=== PATIENT | male | born 1970 | race Caucasian/White ===

== ENCOUNTER 2019-02-05 09:33 | Emergency (ER) | payer BC, OTHER ==
[~2019-02-05] VITALS: Ht 177.8 cm; Wt 79.4 kg
[2019-02-05] MEDS ORDERED: LACTATED RINGERS 1,000 ML IV ONE (09:49)
[2019-02-05] MEDS ORDERED: LISI-552 (09:52)
[2019-02-05] MEDS ORDERED: LOSA25TA41 PO (09:52)
--- NOTE | 2019-02-05 10:02 | ED GI ---
General Chief Complaint: Abdominal/GI Problems Stated Complaint: DIARRHEA;BLOOD IN STOOL Nursing Triage Note: AMB TO ROOM REPORTS THAT LAST 2 DAYS HAS HAD A LIQUID STOOL WITH BRIGHT REG BLOOD. Sepsis Screen: No Definite Risk Source of Information: Patient Exam Limitations: No Limitations History of Present Illness Date Seen by Provider: Feb 05, 2019 Time Seen by Provider: 09:41 Initial Comments Here with report of blood in his stool and has occurred multiple times since yesterday evening. States that his stool is liquid, bright red and bloody and he has had at least 3-4 stools since onset. States that it's a little less now than previous. Has a hunger feeling in his stomach and states that is not uncommon. Denies history of similar. Does have history of hemorrhoids but states he has never had bleeding like this before. Hemorrhoids are apparently external. Timing/Duration: 12-24 Hours Severity/Quality: Moderate Location: Generalized Abdomen Radiation: No Radiation Activities at Onset: None Modifying Factors: Worsens With Eating Associated Symptoms: No Back Pain, No Chest Pain, No Fever/Chills; Fatigue; No Nausea/Vomiting, No Shortness of Air; Weakness Allergies and Home Medications Allergies Coded Allergies: No Known Drug Allergies (Unverified , 02/05/19) Patient Home Medication List Home Medication List Reviewed: Yes Review of Systems Review of Systems Constitutional: see HPI; No chills, No fever EENTM: No Symptoms Reported Respiratory: No Symptoms Reported Cardiovascular: Denies Chest Pain, Denies Edema; Lightheadedness Gastrointestinal: Abdominal Pain, Diarrhea, Nausea, Rectal Bleeding; Denies Vomiting Genitourinary: No Symptoms Reported Musculoskeletal: no symptoms reported Skin: no symptoms reported All Other Systems Reviewed Negative Unless Noted: Yes Past Dcewnca-Mgccjz-Jpkrti Hx Past Med/Social Hx: Reviewed Nursing Past Med/Soc Hx Patient Social History Alcohol Use: Denies Use Recreational Drug Use: No Smoking Status: Never a Smoker Recent Foreign Travel: No Contact w/Someone Who Travel: No Recent Infectious Disease Expo: No Seasonal Allergies Seasonal Allergies: Yes Past Medical History Surgeries: No Respiratory: No Cardiac: Yes Hypertension Neurological: No Genitourinary: No Gastrointestinal: Yes Hemorrhoids Musculoskeletal: No Endocrine: No HEENT: No Cancer: No Psychosocial: No Integumentary: No Blood Disorders: No Family Medical History Reviewed and Corrections made No Pertinent Family Hx Physical Exam Vital Signs Vital Signs - First Documented 02/05/19 09:38 Temp 97.6 Pulse 109 Resp 18 B/P (MAP) 130/76 (94) Pulse Ox 99 Capillary Refill : Less Than 3 Seconds Height/Weight/BMI Height: 5'10.00" Weight: 175lbs. oz. 79.124718cm; BMI Method:Stated General Appearance: WD/WN, no apparent distress HEENT: PERRL/EOMI, pharynx normal Neck: full range of motion, supple Respiratory: lungs clear, normal breath sounds Cardiovascular: regular rate, rhythm, no murmur Peripheral Pulses: 2+ Dorsalis Pedis (R), 2+ Left Dors-Pedis (L), 2+ Radial Pulses (R), 2+ Radial Pulses (L) Gastrointestinal: non tender, soft Rectal: normal rectal tone, heme positive stool, hemorrhoids (small external the anterior 6:00 position that is not bleeding.); No mass, No tenderness Extremities: non-tender, normal inspection Back: normal inspection, no CVA tenderness, no vertebral tenderness Neurologic/Psychiatric: alert, oriented x 3 Skin: normal color, warm/dry Progress/Results/Core Measures Results/Orders Lab Results Laboratory Tests Test 02/05/19 09:54 02/05/19 12:26 Range/Units White Blood Count 9.5 4.3-11.0 10^3/uL Red Blood Count 5.01 4.35-5.85 10^6/uL Hemoglobin 15.4 13.3-17.7 G/DL Hematocrit 44 40-54 % Mean Corpuscular Volume 88 80-99 FL Mean Corpuscular Hemoglobin 31 25-34 PG Mean Corpuscular Hemoglobin Concent 35 32-36 G/DL Red Cell Distribution Width 13.5 10.0-14.5 % Platelet Count 306 130-400 10^3/uL Mean Platelet Volume 10.2 7.4-10.4 FL Neutrophils (%) (Auto) 76 H 42-75 % Lymphocytes (%) (Auto) 17 12-44 % Monocytes (%) (Auto) 6 0-12 % Eosinophils (%) (Auto) 0 0-10 % Basophils (%) (Auto) 0 0-10 % Neutrophils # (Auto) 7.3 1.8-7.8 X 10^3 Lymphocytes # (Auto) 1.7 1.0-4.0 X 10^3 Monocytes # (Auto) 0.6 0.0-1.0 X 10^3 Eosinophils # (Auto) 0.0 0.0-0.3 10^3/uL Basophils # (Auto) 0.0 0.0-0.1 10^3/uL Sodium Level 137 135-145 MMOL/L Potassium Level 4.9 3.6-5.0 MMOL/L Chloride Level 102 98-107 MMOL/L Carbon Dioxide Level 27 21-32 MMOL/L Anion Gap 8 5-14 MMOL/L Blood Urea Nitrogen 33 H 7-18 MG/DL Creatinine 1.66 H 0.60-1.30 MG/DL Estimat Glomerular Filtration Rate 45 BUN/Creatinine Ratio 20 Glucose Level 129 H 70-105 MG/DL Calcium Level 9.2 8.5-10.1 MG/DL Corrected Calcium 9.3 8.5-10.1 MG/DL Total Bilirubin 1.7 H 0.1-1.0 MG/DL Aspartate Amino Transf (AST/SGOT) 19 5-34 U/L Alanine Aminotransferase (ALT/SGPT) 20 0-55 U/L Alkaline Phosphatase 40 40-136 U/L Total Protein 5.9 L 6.4-8.2 GM/DL Albumin 3.9 3.2-4.5 GM/DL Urine Color YELLOW Urine Clarity CLEAR Urine pH 7 5-9 Urine Specific [place] 1.010 L 1.016-1.022 Urine Protein 2+ H NEGATIVE Urine Glucose (UA) NEGATIVE NEGATIVE Urine Ketones 1+ H NEGATIVE Urine Nitrite NEGATIVE NEGATIVE Urine Bilirubin NEGATIVE NEGATIVE Urine Urobilinogen NORMAL NORMAL MG/DL Urine Leukocyte Esterase 1+ H NEGATIVE Urine RBC (Auto) NEGATIVE NEGATIVE Urine RBC NONE /HPF Urine WBC RARE /HPF Urine Squamous Epithelial Cells RARE /HPF Urine Crystals NONE /LPF Urine Bacteria TRACE /HPF Urine Casts PRESENT /LPF Urine Hyaline Casts 10-25 H /LPF Urine Mucus SMALL H /LPF Urine Culture Indicated NO My Orders Orders - GELY MURRAY MD Cbc With Automated Diff (02/05/19 09:49) Comprehensive Metabolic Panel (02/05/19 09:49) Type And Screen (02/05/19 09:49) Saline Lock/Iv-Start (02/05/19 09:49) Lactated Ringers (Lr 1000 Ml Iv Solution (02/05/19 09:49) Fecal Occult Bedside (02/05/19 09:49) Ct Abdomen/Pelvis W (02/05/19 10:22) Iohexol Injection (Omnipaque 350 Mg/Ml 1 (02/05/19 11:00) Received Contrast (Hold Metformin- Contr (02/05/19 11:00) Ua Culture If Indicated (02/05/19 11:57) Saline Lock/Iv-Start (02/05/19 12:00) Ns Iv 1000 Ml (Sodium Chloride 0.9%) (02/05/19 12:00) Medications Given in ED Current Medications Medications Dose Ordered Sig/Marcos Route Start Time Stop Time Status Last Admin Dose Admin Lactated Ringer's 1,000 ml @ 0 mls/hr Q0M ONCE IV 02/05/19 09:49 02/05/19 09:51 DC 02/05/19 10:01 1,000 MLS/HR Sodium Chloride 1,000 ml @ 0 mls/hr Q0M ONCE IV 02/05/19 12:00 02/05/19 12:01 DC 02/05/19 12:03 0 MLS/HR Vital Signs/I&O 02/05/19 09:38 Temp 97.6 Pulse 109 Resp 18 B/P (MAP) 130/76 (94) Pulse Ox 99 Blood Pressure Mean: 94 Progress Progress Note : Progress Note Seen and evaluated. IV, labs, LR 1 L bolus ordered. Rectal exam performed. Stool is heme positive. 1025: CT abdomen and pelvis ordered to evaluate for other etiologies including diverticulosis. Discussed with patient who agrees. Monitor patient. 1230: Will repeat normal saline 1 L bolus. No other significant findings and he has not had bloody stool here. I did page Dr. Neal and I am awaiting his return call. 1300: I discussed the case with Dr. Neal. He can see him tomorrow at 2 PM given his otherwise normal labs and CT scan and lack of repeat bloody stool currently. Patient is overall feeling much better. We will await for fluid completion. 1410: Fluids complete and patient feels better. Still without bloody stool although he states he may feel like he has to have a little bit of a bowel movement soon. He was instructed on the follow- up and agreed with what see Dr. Neal tomorrow at 2 PM. Discharged home with return precautions. Patient verbalize understanding instructions and agreement with plan. Diagnostic Imaging Diagonstic Imaging: CT Plain Films/CT/US/NM/MRI: abdomen, pelvis Comments NAME: [facility] REC#: [id number] PT STATUS: REG ER : 1970 PHYSICIAN: GELY MURRAY MD ADMIT DATE: 02/05/19/ER Draft Date of Exam:02/05/19 CT ABDOMEN/PELVIS W PROCEDURE: CT abdomen and pelvis with contrast. TECHNIQUE: Multiple contiguous axial images were obtained through the abdomen and pelvis after administration of intravenous contrast. Auto Exposure Controls were utilized during the CT exam to meet ALARA standards for radiation dose reduction. INDICATION: Bloody stools. FINDINGS: There is a probable cyst in the right lobe of the liver without other focal hepatic or splenic lesion. Pancreas, adrenal glands and kidneys are also unremarkable in appearance. There is evidence of gallbladder abnormality or biliary ductal dilatation. There is no free fluid within the abdomen or pelvis. The appendix has a normal appearance. There is no evidence of bowel obstruction. Partially opacified urinary bladder is unremarkable. There is prominent enhancement of the prostate gland however no significant prostatic enlargement is identified and is no focal fluid collection. IMPRESSION: No definite acute abnormality is identified. Prosthetic hyperemia may be related to prostatitis and clinical correlation is recommended. There is no evidence of colonic inflammation or obstruction. Dictated on workstation # [id number] Dict: 02/05/19 1146 Trans: 02/05/19 1153 ANDREA [id number] Interpreted by: BEBO DEGROOT MD Electronically signed by: Departure Impression Primary Impression: Lower GI bleed Additional Impression: Dehydration Disposition: 01 HOME, SELF-CARE Condition: Improved Departure-Patient Inst. Decision time for Depature: 14:15 Referrals: CONNIE LUCIANO MD (PCP) Primary Care Physician Patient Instructions: Acute Abdomen (Belly Pain), Adult (DC), Gastrointestinal Bleeding (DC) Add. Discharge Instructions: All discharge instructions reviewed with patient and/or family. Voiced understanding. Clear liquid diet for very light diet over the next 24 hours and then advance as tolerated. Follow-up with Dr. Neal tomorrow at 2 PM for appointment. Follow- up with your doctor this week for recheck and further evaluation. Return for worse pain, fever, vomiting, weakness, breathing problems, persistent bloody stool or other concerns as needed. Copy Copies To 1: MICHELLE NEAL MD Copies To 2: CONNIE LUCIANO MD, TIMOTHY D MD Feb 05, 2019 10:02
[2019-02-05 10:03] LABS: BASOPHILS % (AUTO) 0 % (0-10); EOSINOPHILS % (AUTO) 0 % (0-10); HEMATOCRIT 44 % (40-54); HEMOGLOBIN 15.4 G/DL (13.3-17.7); LYMPHOCYTES # (AUTO) 1.7 X 10^3 (1.0-4.0); LYMPHOCYTES % (AUTO) 17 % (12-44); MEAN CORPUSCULAR HEMOGLOBIN 31 PG (25-34); MEAN CORPUSCULAR HGB CONC 35 G/DL (32-36); MEAN CORPUSCULAR VOLUME 88 FL (80-99); MEAN PLATELET VOLUME 10.2 FL (7.4-10.4); MONOCYTES # (AUTO) 0.6 X 10^3 (0.0-1.0); MONOCYTES % (AUTO) 6 % (0-12); NEUTROPHILS # (AUTO) 7.3 X 10^3 (1.8-7.8); NEUTROPHILS % (AUTO) 76 % (42-75); PLATELET COUNT 306 10^3/uL (130-400); RED CELL DISTRIBUTION WIDTH 13.5 % (10.0-14.5); WHITE BLOOD COUNT 9.5 10^3/uL (4.3-11.0)
[2019-02-05 10:32] LABS: ALBUMIN 3.9 GM/DL (3.2-4.5); BILIRUBIN,TOTAL 1.7 MG/DL (0.1-1.0); CALCIUM 9.2 MG/DL (8.5-10.1); CREATININE SERUM 1.66 MG/DL (0.60-1.30); POTASSIUM 4.9 MMOL/L (3.6-5.0); TOTAL PROTEIN 5.9 GM/DL (6.4-8.2)
[2019-02-05] MEDS ORDERED: HOLD METFORMIN - RECEIVED CONTRAST 20 ML VIAL IV SCH (11:00)
[2019-02-05] MEDS ORDERED: IOHEXOL 350 MG/ML 100 ML (OMNIPAQUE 350) VIAL IV ONE (11:00)
--- NOTE | 2019-02-05 11:54 | Diagnostic Imaging Report ---
PROCEDURE: CT abdomen and pelvis with contrast. TECHNIQUE: Multiple contiguous axial images were obtained through the abdomen and pelvis after administration of intravenous contrast. Auto Exposure Controls were utilized during the CT exam to meet ALARA standards for radiation dose reduction. INDICATION: Bloody stools. FINDINGS: There is a probable cyst in the right lobe of the liver without other focal hepatic or splenic lesion. Pancreas, adrenal glands and kidneys are also unremarkable in appearance. There is evidence of gallbladder abnormality or biliary ductal dilatation. There is no free fluid within the abdomen or pelvis. The appendix has a normal appearance. There is no evidence of bowel obstruction. Partially opacified urinary bladder is unremarkable. There is prominent enhancement of the prostate gland however no significant prostatic enlargement is identified and is no focal fluid collection. IMPRESSION: No definite acute abnormality is identified. Prosthetic hyperemia may be related to prostatitis and clinical correlation is recommended. There is no evidence of colonic inflammation or obstruction. Dictated by: Dictated on workstation # [id number]
[2019-02-05] MEDS ORDERED: NS IV 1000 ML 1,000 ML IV ONE (12:00)
[2019-02-05 12:45] LABS: BILIRUBIN,URINE NEGATIVE (NEGATIVE); CLARITY,URINE CLEAR; COLOR,URINE YELLOW; GLUCOSE, URINE (UA) NEGATIVE (NEGATIVE); KETONES,URINE 1+ (NEGATIVE); LEUKOCYTE ESTERASE ,URINE 1+ (NEGATIVE); NITRITE,URINE NEGATIVE (NEGATIVE); PH,URINE 7 (5-9); PROTEIN,URINE 2+ (NEGATIVE); UROBILINOGEN,URINE NORMAL (NORMAL)
[2019-02-05 13:34] LABS: BACTERIA,URINE TRACE /HPF; WBC,URINE RARE /HPF
[2019-02-05 13:35] LABS: SQUAMOUS EPITHELIAL CELL,UR RARE /HPF
[2019-02-05 14:23] VITALS: BP 116/85
== END 2019-02-05 14:23 | disposition home or self-care (01) ==
LOC: EDUNIT# 09:33 → ER 09:35
DX: K92.2 Gastrointestinal hemorrhage, unspecified (principal); E86.0 Dehydration; I10 Essential (primary) hypertension; Z87.19 Personal history of other diseases of the digestive system
CPT/HCPCS: 36415; 74177; 80053; 81000; 85025; 86850; 86900; 86901

== ENCOUNTER 2019-02-07 10:55 | Outpatient (CLI) | payer BC ==
[~2019-02-07] VITALS: Ht 177.8 cm; Wt 78.0 kg
[~2019-02-07 10:55] MED LIST: LISI-552; LOSA25TA41 PO
[2019-02-07] MEDS ORDERED: FEXO1TAB40 PO (12:40)
== END 2019-02-07 12:45 ==
LOC: PREOP 10:55
PROVIDERS: ATTEND Surgery
DX: Z01.818 Encounter for other preprocedural examination (principal)

== ENCOUNTER 2019-02-08 12:44 | Day surgery (SDC) | payer BC ==
[~2019-02-08] VITALS: Ht 177.8 cm; Wt 78.0 kg
[~2019-02-08 12:44] MED LIST changes: +FEXO1TAB40 PO
[2019-02-08] MEDS ORDERED: NS IV 500 ML 500 ML IV PRN (12:56)
[2019-02-08 13:00] VITALS: BP 135/85
[2019-02-08] MEDS ORDERED: LIDOCAINE JELLY 2% 6 ML SYRINGE MM PRN (13:00)
[2019-02-08] MEDS ORDERED: fentaNYL INJECTION 100 MCG/2 ML AMP IVP ONE (13:00)
[2019-02-08] MEDS ORDERED: MIDAZOLAM 2 MG/2 ML (VERSED) VIAL IVP ONE (13:00)
[2019-02-08] MEDS ORDERED: NS IV 500 ML 500 ML ONE (13:03)
[2019-02-08 13:25] VITALS: BP 135/85
--- NOTE | 2019-02-08 13:26 | Conscious Sedation/ASA ---
Conscious Sedation Pre-Proced Time 12:30 ASA Score 1 For ASA 3 and 4: Consider anesthesia and medical clearance. Also, for patients with a history of failed moderate sedation consider anesthesia. Airway Lungs Heart ASA score ASA 1: a normal healthy patient ASA 2: a patient with a mild systemic disease (mid diabetes, controlled hypertension, obesity ASA 3: a patient with a severe systemic disease that limits activity (angina , COPD, prior Myocardial infarction) ASA 4: a patient with an incapacitating disease that is a constant threat to life (CHF, renal failure) ASA 5: a moribund patient not expected to survive 24 hrs. (ruptured aneurysm) ASA 6: a declared brain- patient whose organs are being harvested. For emergent operations, add the letter E after the classification Mallampati Classification Grade 1 Sedation Plan Analgesia, Amnesia, Plan communicated to team members, Discussed options with patient/fam, Discussed risks with patient/fam The patient is an appropriate candidate to undergo the planned procedure, sedation, and anesthesia. The patient immediately re-assessed prior to indication. MICHELLE MARTINI MD Feb 08, 2019 13:26
--- NOTE | 2019-02-08 13:27 | Progress Note-Pre Operative ---
Pre-Operative Progress Note H&P Reviewed The H&P was reviewed, patient examined and no changes noted. Date Seen by Provider: Feb 08, 2019 Time Seen by Provider: 12:30 Date H&P Reviewed: Feb 08, 2019 Time H&P Reviewed: 12:30 Pre-Operative Diagnosis: rectal bleeding MICHELLE MARTINI MD Feb 08, 2019 13:27
--- NOTE | 2019-02-08 13:28 | Discharge Inst-Surgical ---
D/C Lap Instructions-LIANET Follow Up Activity as tolerated High Fiber Diet 25g or more per day Avoid Alcohol, Caffeine, Spicy [place] and Acid foods. Drink 64 fluid oz or more of fluids per day. Symptoms to Report: Fever over 101 degree F, Nausea/Vomiting If any problems/questions: Contact your physician or go to Emergency Room MICHELLE MARTINI MD Feb 08, 2019 13:28
[2019-02-08] MEDS ORDERED: ACETAMINOPHEN 325 MG TABLET PO PRN (13:30)
[2019-02-08] MEDS ORDERED: HYDROcodone/APAP 5 MG/325 MG (LORTAB) TAB PO PRN (13:30)
[2019-02-08] MEDS ORDERED: morphine INJ 10 MG/ML 1ML (SYR OR VIAL) IV PRN (13:30)
[2019-02-08] MEDS ORDERED: ONDANSETRON 4 MG/2 ML (SDV) Z0FRAN IV PRN (13:30)
[2019-02-08] MEDS ORDERED: fentaNYL INJECTION 100 MCG/2 ML AMP ONE ×2 (13:32→13:57)
[2019-02-08] MEDS ORDERED: LIDOCAINE JELLY 2% 6 ML SYRINGE ONE (13:32)
[2019-02-08] MEDS ORDERED: MIDAZOLAM 2 MG/2 ML (VERSED) VIAL ONE ×5 (13:32→13:58)
--- NOTE | 2019-02-08 14:35 | Progress Note-Post Operative ---
Post-Operative Progess Note Surgeon (s)/Flume Ride Operator (s) Surgeon MICHELLE MARTINI MD Flume Ride Operator: none Pre-Operative Diagnosis rectal bleeding Post-Operative Diagnosis chronic stage 2 ext and int hemorrhoids with mild edema/irratation solitary int hemorrhoid cushion, small rectal HP polyp, mod-severe sigmoid diverticulosis. Procedure & Operative Findings Date of Procedure 02/08/19 Procedure Performed/Findings Colonoscopy with bx Anesthesia Type cs Estimated Blood Loss Estimated blood loss (mL): minimal Specimens/Packing Specimens Removed rectal polyp MICHELLE MARTINI MD Feb 08, 2019 14:35
[2019-02-08 14:45] VITALS: BP 87/54
[2019-02-08 15:15] VITALS: BP 109/66
--- NOTE | 2019-02-09 00:51 | OPERATIVE REPORT ---
DATE OF SERVICE: 02/08/2019 ATTENDING PRIMARY CARE PHYSICIAN: Dr. Ivan Merchant. PREOPERATIVE DIAGNOSIS: Rectal bleeding. POSTOPERATIVE DIAGNOSES: Stage II internal hemorrhoids with mild edema and inflammation consistent with a recent bleed, no active bleeding, moderate to severe sigmoid diverticulosis with no signs of diverticulitis, small hyperplastic polyp of the rectum. PROCEDURE: Colonoscopy with biopsy. SURGEON: Michelle Martini MD ANESTHESIA: Conscious sedation. ESTIMATED BLOOD LOSS: Minimal. FINDINGS: Stage II internal hemorrhoids with mild edema and inflammation consistent with a recent bleed, no active bleeding, moderate to severe sigmoid diverticulosis with no signs of diverticulitis, small hyperplastic polyp of the rectum. DISPOSITION: The patient tolerated the procedure well. INDICATIONS: The patient is a 48-year-old male who developed rectal bleeding several days ago. He stated that he did have a significant amount of bleeding episodes of approximately 6 times throughout the night as well as the morning. He was seen by his physician. Seen in the Emergency Department where laboratory work and CT scan were performed, which were unremarkable. He does report that he has had a history of hemorrhoids in the past as well as occasional episodes of bleeding. He has not had a colonoscopy at this point in his life. DESCRIPTION OF PROCEDURE: The patient was brought to the endoscopy suite, laid in left lateral decubitus position. After adequate IV pain and sedative medications and conscious sedation anesthesia, a digital rectal examination was performed. There were chronic stage II external and internal hemorrhoids with slight irritation of an internal hemorrhoidal cushion consistent with a recent bleed. There was no thrombosis identified. Normal sphincter tone was felt and there were no palpable masses. Prostate gland was palpable and appeared normal. The endoscope was then intubated to the anus and rectum gently insufflated. The endoscope was then advanced to the rectum where small hyperplastic polyp approximately 1 mm in size identified. This was biopsied and destroyed using forceps and electrocautery with visualization of good hemostasis. We then proceed to the sigmoid colon where a moderate to severe sigmoid diverticulosis identified. There was no mucosal inflammatory change to indicate any active diverticulitis as well as no acute or chronic bleeding sources or signs identified. Endoscope was then advanced to the remainder of the descending, transverse, ascending colon to the cecum. These segments were normal. There were no other lesions identified. The endoscope was then slowly withdrawn while taking a second look and suctioning residual air with no additional findings. The patient tolerated the procedure well. We will recommend medical management with high fiber diet with at least 30 grams of fiber per day as significant amounts of water daily to promote soft stools on a daily basis. He does not have a family history of colon cancer and he follows a high fiber diet and is asymptomatic and does not have any issues he may follow up in 10 years. Job ID: [id number] DocumentID: [id number] Dictated Date: 02/08/2019 14:27:46 [employer] Date: 02/09/2019 00:50:45 Dictated By: MICHELLE MARTINI MD
== END 2019-02-08 15:30 | disposition home or self-care (01) ==
LOC: ENDO 12:44
PROVIDERS: ATTEND Surgery
DX: K64.1 Second degree hemorrhoids (principal); K62.1 Rectal polyp; K57.30 Diverticulosis of large intestine without perforation or abscess without bleeding; I10 Essential (primary) hypertension